=== PATIENT | male | born 1960 | race Caucasian/White ===

== ENCOUNTER → 2017-06-10 | Outpatient (CLI) | payer BC ==
--- NOTE | 2017-06-10 15:22 | PCVCIMAG ---
EXAM: DUPLEX ULTRASOUND OF THE RIGHT GROIN INDICATION: Groin swelling and pain. FINDINGS: No pseudoaneurysm is present. The common femoral artery is patent. No arteriovenous fistula is seen. Note is made it is very difficult to compress the upper most main femoral vein but this is most likely because of the patient's body habitus. I did personally scanned this and there are satisfactory venous flow waveforms in this portion of main femoral vein with adequate augmentation response. Clinically there is no leg swelling. IMPRESSION: Study is negative for pseudoaneurysm. LOC:[id number]
== END | disposition home or self-care (01) ==
LOC: PCVCIMAG 13:12
PROVIDERS: ATTEND Internal Medicine Cardiovascular Disease
DX: R10.31 Right lower quadrant pain (principal); R19.09 Other intra-abdominal and pelvic swelling, mass and lump
CPT/HCPCS: 93926